=== PATIENT | female | born 1965 | race Caucasian/White ===

== ENCOUNTER 2022-09-26 15:23 | Outpatient (RCR) | payer BC, SELFPAY | END 2022-12-27 09:20 | disposition home or self-care (01) | PROVIDERS: PCP Family Medicine; Visit Provider Family Medicine | DX: M25.551 Pain in right hip (principal); M62.81 Muscle weakness (generalized); Z51.89 Encounter for other specified aftercare | CPT/HCPCS: 97110; 97161 ==

== ENCOUNTER 2023-02-18 09:35 | Outpatient (CLI) | payer BC, SELFPAY ==
[2023-02-20 03:21] LABS: Bacterial Vaginosis by TMA Negative; Candida glabrata by TMA Negative; Candida species by TMA Negative; Trichomonas vaginalis by TMA Negative
== END 2023-02-18 09:36 | disposition home or self-care (01) ==
LOC: NFLDREF 09:41
PROVIDERS: PCP Family Medicine; Visit Provider Physician Assistant
DX: N89.8 Other specified noninflammatory disorders of vagina (principal); R30.0 Dysuria
CPT/HCPCS: 81513; 87481; 87661

== ENCOUNTER 2024-04-27 14:01 | Outpatient (RCR) | payer BC, SELFPAY | END 2024-08-25 23:59 | disposition home or self-care (01) | PROVIDERS: PCP Family Medicine; Visit Provider Family Medicine | DX: M25.551 Pain in right hip (principal); Z51.89 Encounter for other specified aftercare | CPT/HCPCS: 97110; 97161 ==

== ENCOUNTER 2024-06-14 14:48 | Outpatient (CLI) | payer BC, SELFPAY ==
--- NOTE | 2024-06-14 14:45 | MR_ITS ---
EXAM: MRI of the RIGHT HIP, without contrast CLINICAL HISTORY: Ongoing right hip pain. Evaluate for arthritis, stress fracture, and labral tear. COMPARISONS: Plain radiographs 04/07/2024 and 08/15/2022. TECHNICAL: MR sequences of the right hip: Axials: PD FS Axial oblique: PD Coronals: PD, T2 Coronal pelvis: T1 and STIR Sagittals: PD and T2 CONTRAST: None SEDATION: None FINDINGS: Pelvis osseous structures: Sacrum: No fracture or destructive osseous lesion is seen of the imaged portions of the sacrum. Sacroiliac joints: No convincing evidence of sacroiliitis of the imaged portions of the sacroiliac joints. Pubic rami: Unremarkable. Symphysis pubis: There is no evidence of acute osteitis pubis. Labrum: Attenuation and ill-definition of the right hip labrum from the 1 o'clock position anterosuperiorly through 3 o'clock position anteriorly are findings consistent with fraying and ill-defined labral tearing. Hip joint: Moderate right hip joint effusion. Substantial right hip osteoarthritic changes include extensive full-thickness chondral loss over the superior portion of the acetabulum measuring approximately 2.5 cm in AP dimension by 1.0 cm in transverse dimension with subjacent subchondral cystic changes and grade III chondromalacia over the superior portion of the femoral head. Proximal femur: No fracture, osseous stress injury, avascular necrosis, or suspicious bone marrow signal abnormality is seen. The right femoral alpha angle measures 67 degrees at the 12 o'clock position superiorly measured on coronal series 5 image 15. Acetabulum: Coverage: Right lateral center edge (CE) angle measures approximately 30? correcting for coronal pelvic tilt, midline coronal series 5 image 15. Ligamentum teres: Attenuation and ill-definition likely reflect chronic attritional partial tearing. Myotendinous structures: Gluteus abductors: The gluteus minimus and medius tendons are unremarkable. Rectus abdominis-adductor longus aponeurosis, adductors, and rectus abdominis: Unremarkable. Hamstrings: Low-grade partial tearing of the right conjoined hamstring tendon at the ischial tuberosity attachment. The right semimembranosus tendon is unremarkable. Flexors: The iliopsoas and rectus femoris tendons are intact. Quadratus femoris muscle: Unremarkable. Piriformis muscle: Unremarkable. Gluteal aponeurotic fascia and IT band: Unremarkable. Pelvic soft tissues: There is colonic diverticulosis without evidence of diverticulitis. IMPRESSION: 1. Substantial right hip osteoarthritis with a 2.5 x 1.0 cm area of full- thickness chondral loss over the superior portion of the acetabulum, subjacent subchondral cystic changes, and grade III chondromalacia over the superior portion of the femoral head. Attenuation and ill-definition of the right hip labrum from the 1 o'clock position anterosuperiorly through 3 o'clock position anteriorly are findings consistent with fraying and ill-defined labral tearing. 2. Right femoral cam morphology. 3. Moderate right hip joint effusion. 4. Attenuation and ill-definition of the right hip ligamentum teres are findings consistent with chronic attritional partial tearing. 5. Low-grade partial tearing of the right conjoined hamstring tendon at the ischial tuberosity attachment, of uncertain/doubtful clinical significance. 6. Colonic diverticulosis without evidence of diverticulitis. 7. No fracture or osseous stress injury of the right hip. RCB Electronically signed on 06/15/2024 9:02:00 AM by Gera Alegria M.D.
== END 2024-06-14 14:49 | disposition home or self-care (01) ==
LOC: MRI 14:49
PROVIDERS: PCP Family Medicine; Visit Provider Orthopaedic Surgery
DX: M25.551 Pain in right hip (principal); M16.11 Unilateral primary osteoarthritis, right hip; M94.251 Chondromalacia, right hip; M25.451 Effusion, right hip; S76.011A Strain of muscle, fascia and tendon of right hip, initial encounter; K57.30 Diverticulosis of large intestine without perforation or abscess without bleeding
CPT/HCPCS: 73721

== ENCOUNTER 2024-09-07 09:16 | Day surgery (SDC) | payer BC, SELFPAY ==
[2024-09-07] VITALS (21 sets, daily range): BP systolic 85–120; BP diastolic 40–86; PULSE 66–91; RESP 11–19; TEMP 36.1–36.7; O2SAT 90–100; BMI 43.4
[2024-09-07] MEDS: SODIUM CHLORIDE 0.9 % (FLUSH) 10 ML SYRINGE IVF (10:13)
[2024-09-07] MEDS: LACTATED RINGERS 1000 ML 1,000 ML 100 ML IV ×2 (10:13→13:08)
--- NOTE | 2024-09-07 10:58 | SUR.PREOP ---
TIME?OUT:?11:00 AM PT/RN/MDA?VERIFICATION?OF?SURGICAL?SITE,?PROCEDURE,?AND?CONSENT OBTAINED?PRIOR?TO?INVASIVE?PROCEDURE.
[2024-09-07] MEDS: CELECOXIB 200 MG CAPSULE PO (11:00)
[2024-09-07] MEDS: ACETAMINOPHEN 500 MG TABLET 1000 MG PO ×3 (11:00→23:46)
[2024-09-07] MEDS: MIDAZOLAM HCL 1 MG/ML inj IVP (11:00)
[2024-09-07] MEDS: OXYCODONE (CR) 10 MG TAB.ER.12H PO (11:00)
--- NOTE | 2024-09-07 11:08 | W.ANESCHARGE ---
Anesthesia Charges Start Date/Time Anesthesia Start Date: 09/07/24 Anesthesia Start Time: 11:41 Stop Date/Time Anesthesia Stop Date: 09/07/24 Anesthesia Stop Time: 14:27 Coding CPT Codes CPT Codes: ANESTH HIP ARTHROPLASTY - 51176 ([id number]) P3 - PATIENT W/SEVERE SYS DISEASE, QK - COW BUYER 2-4 CNCRNT ANES PROC, QX - CIRCULATION ANALYST SVC W/ MD MED DIRECTION
--- NOTE | 2024-09-07 11:08 | P.ANES_ITS ---
Anesthesia Charges Start Date/Time Anesthesia Start Date: 09/07/24 Anesthesia Start Time: 11:41 Stop Date/Time Anesthesia Stop Date: 09/07/24 Anesthesia Stop Time: 14:27 Coding CPT Codes CPT Codes: ANESTH HIP ARTHROPLASTY - 09886 ([id number]) P3 - PATIENT W/SEVERE SYS DISEASE, QK - DAYCARE TEACHER 2-4 CNCRNT ANES PROC, QX - HOUSE MOTHER SVC W/ MD MED DIRECTION
--- NOTE | 2024-09-07 11:08 | W.PM.NB ---
Nerve Block Nerve Block Time Seen by Provider: 11:05 Date Seen: 09/07/24 Type of block requested by surgeon for post-operative analgesia: JAVY/LFCN Side: right Time out performed: Yes Verification of patient name: Yes Verification of date of : Yes Site marking: site marked Name of person performing procedure: Emeka Continuous monitoring Was continuous monitoring of O2 sat, B/P, monitoring coordinator, recorded every 15 minutes?: Yes Procedure Checklist: sterile prep, needles and gloves Ultrasound guided. Images saved: Yes Medications given in 5ml increments after negative aspiration: Ropivicaine %: 0.5 mL: 30 Needle gauge: 20 Precedex (mcg): 25 Patient tolerated procedure well: Yes Additional comments: Needle noted below psoas tendon needle noted adjacent to LFCN Block Charges Block Charge (with Pro Fee): Other Periph Nerve Block Use of Ultrasound Machine for Block: Yes- US Guidance/pain block
--- NOTE | 2024-09-07 11:30 | CRLHL7_ITS ---
For Patients: As a result of the Cures Act, medical imaging exams and procedure reports are released immediately into your electronic medical record. You may view this report before your referring provider. If you have questions, please contact your health care provider. Indication: Hip replacement surgery Technique: AP hip fluoroscopic images. Fluoroscopy time 84.6 seconds. Findings/Impression: Hardware from a right total hip arthroplasty is in satisfactory position. Dictated by Yash Edwards MD @ 09/09/2024 10:40:49 AM (Electronically Signed)
[2024-09-07] MEDS: TRANEXAMIC ACID 100 MG/ML INJ 1000 MG IV (12:15)
--- NOTE | 2024-09-07 13:42 | CRLHL7_ITS ---
For Patients: As a result of the Cures Act, medical imaging exams and procedure reports are released immediately into your electronic medical record. You may view this report before your referring provider. If you have questions, please contact your health care provider. Indication: Right Total Hip Arthroplasty Technique: AP hip centered pelvis and lateral view right hip Findings/Impression: Hardware from a right total hip arthroplasty is in satisfactory position. Bone alignment is normal. No sign of acute fracture. Postop changes are within normal limits. Dictated by Yash Edwards MD @ 09/08/2024 8:02:38 AM (Electronically Signed)
--- NOTE | 2024-09-07 14:03 | PM.ORPRC ---
Procedure Note Date of procedure: 09/07/24 Procedure: PREOPERATIVE DIAGNOSIS: Right hip osteoarthritis POSTOPERATIVE DIAGNOSIS: Right hip osteoarthritis NAME OF OPERATION: Right total hip arthroplasty SURGEON: Gunner Ramon MD AIRCRAFT MACHINIST HELPER: Carine Lopez PA-C, MAGGIE Beal IMPLANTS: 1. [employer] [place] #52 sector ingrowth cup 2. 36 x 52 +4 neutral polyethylene 3. Actis #3 high offset collared ingrowth stem 4. 36 -2 ceramic femoral head ANESTHESIA: General ESTIMATED BLOOD LOSS: 950 cc COMPLICATIONS: None SPECIMENS: None DRAINS: None PREOPERATIVE ANTIBIOTICS: Ancef 3 grams INDICATIONS: The patient is a 58-year-old with a longstanding history of severe, unrelenting right hip pain secondary to end-stage right hip osteoarthritis. Despite appropriate nonoperative management, including activity modification, use of an assist device, anti-inflammatories, [id number] pain medication, physical therapy and injections, they continue to have pain and disability. Operative intervention was offered. The risks, benefits and expected outcomes were discussed in detail. These included but were not limited to: Infection, bleeding, injury to blood vessel or nerve, venous thromboembolism. All questions were answered to their satisfaction. Use of an aquatics assistant department head was necessary throughout the case for patient positioning and safety, soft tissue retraction and closure. A modifier 22 should be added to this case patient weighs 126 kg with a BMI of 43. Because of this the dissection was difficult. The soft tissue envelope was 60 mm deep. These factors doubled the time typically required to complete the case. PROCEDURE: The patient was placed supine on the [place] table. General anesthesia was administered. The aquatics assistant department head made sure the patient was properly positioned. The right hip was prepped and draped in the usual sterile fashion. The image intensifier was brought in for a perfect AP pelvis and a perfect double tear drop AP view of each hip which were used for intraoperative templating with our fluoroscopic guide. An oblique incision was made 3 cm distal and 3 cm lateral to the anterior superior iliac spine. The aquatics assistant department head retracted the soft tissues to protect them. Subcutaneous dissection was taken with electrocautery to the superficial fascia. The fascia was divided in line with the incision. Blunt dissection was carried medially to the tensor fascia breann and sartorius interval. Deep dissection was carried with electrocautery. The circumflex vessels were cauterized and divided. The capsule was exposed and then divided in a T-fashion, tagged with #1 FiberWire sutures. Retractors were placed in the joint, held by the aquatics assistant department head. The corkscrew was placed in the femoral head. The neck cut was made in the subcapital region. We made a second neck cut more distal. The napkin ring of bone was removed. The femoral head was removed intact. Acetabular retractors were placed, held by the aquatics assistant department head. The labrum was sharply debrided. The capsule was released. The 43 mm reamer was used to the true medial wall. We then enlarged in 2 mm increments using the image intensifier for our reamer placement. We impacted the cup which had excellent purchase. We placed the polyethylene. Attention was then turned to the proximal femur. The limb was placed in 140 degrees of external rotation, maximum extension and adduction. A significant amount of time was spent releasing the capsule to allow us to deliver the femur into the wound and complete the femoral side safely. Retractors were held by the aquatics assistant department head throughout the femoral preparation. The paperboard box maker and canal finder were used. Broaches were used to a stable size. The calcar reamer was used. Trial components were placed. The hip was reduced and was found to be stable with appropriate soft tissue tension. Length and offset had been nicely restored using the image intensifier and our fluoroscopic guide. Trial components were removed. The stem was impacted. We placed the femoral head. Again, the hip was reduced and was found to be stable with appropriate soft tissue tension. Length and offset had been nicely restored. The aquatics assistant department head did a three minute dilute Betadine solution soak. The aquatics assistant department head irrigated the wound with 3 liters of normal saline via pulse lavage. The aquatics assistant department head repaired the anterior capsule with a #1 Vicryl and our previously placed Ethibond sutures. The aquatics assistant department head closed the fascia over the tensor fascia breann with a #1 PDO Stratafix, subcutaneous tissues with 2-0 Vicryl, skin with a running 3-0 Stratafix and glue. A dry dressing was applied by the aquatics assistant department head. Sponge and needle counts were correct x 2. The patient tolerated the procedure well; there were no apparent complications. They were awakened and extubated in the operating room, sent to the Post-Anesthesia Care Unit in satisfactory condition. PLAN: 1. The patient will be mobilized with physical therapy, weight-bearing as tolerates 2. Xarelto x 5 days then aspirin x 30 days will be used for DVT prophylaxis 3. The patient will be discharged once medically appropriate
--- NOTE | 2024-09-07 14:40 | P.ANES_ITS ---
Anesthesia Charges Start Date/Time Anesthesia Start Date: 09/07/24 Anesthesia Start Time: 11:41 Stop Date/Time Anesthesia Stop Date: 09/07/24 Anesthesia Stop Time: 14:27 Coding CPT Codes CPT Codes: ANESTH HIP ARTHROPLASTY - 76750 ([id number]) P3 - PATIENT W/SEVERE SYS DISEASE, QK - SOFTWARE APPLICATIONS SPECIALIST 2-4 CNCRNT ANES PROC, QX - PANTS PRESSER AUTOMATIC SVC W/ MD MED DIRECTION
--- NOTE | 2024-09-07 14:40 | W.ANESCHARGE ---
Anesthesia Charges Start Date/Time Anesthesia Start Date: 09/07/24 Anesthesia Start Time: 11:41 Stop Date/Time Anesthesia Stop Date: 09/07/24 Anesthesia Stop Time: 14:27 Coding CPT Codes CPT Codes: ANESTH HIP ARTHROPLASTY - 70865 ([id number]) P3 - PATIENT W/SEVERE SYS DISEASE, QK - TIN PLATER 2-4 CNCRNT ANES PROC, QX - BUSINESS APPLICATIONS DEVELOPER SVC W/ MD MED DIRECTION
[2024-09-07] MEDS: LACTATED RINGERS 1000 ML 1,000 ML 75 ML IV (14:50)
[2024-09-07] MEDS: CEFAZOLIN 3 GM in 0.9 % SODIUM CHLORIDE Mini-bag 100 ML IVPB (19:51)
[2024-09-07] MEDS: SENNOSIDES 1 TAB TABLET 2 TAB PO (20:28)
--- NOTE | 2024-09-07 21:07 | P.IMCN_ITS ---
Date of Consult Consult date: 09/07/24 Requesting Physician: Orthopedics Primary Care Provider: Diya Villavicencio, Consult Narrative Reason for consult: perioperative medical comanagement Narrative: Yaneth Gilbert is a 58 year old female with past medical history significant for hypothyroidism, obesity, anxiety and depression who presented to the hospital for right total hip arthroplasty. Preop history and physical was reviewed and patient was deemed a good candidate for surgery. She is seen postoperatively and doing ok. She has had some hypotension, required epinepherine in PACU. She denies chest pain, shortness of breath, nausea or any other concerns. [facility] Medical History (Updated 09/07/24 @ 21:23 by Jessenia Reardon MD) Lymphedema ?I89.0 - Lymphedema, not elsewhere classified (ICD-10) Adjustment disorder with depressed mood ?F43.21 - Adjustment disorder with depressed mood (ICD-10) Vitamin D deficiency ?E55.9 - Vitamin D deficiency, unspecified (ICD-10) Hypothyroidism ?E03.9 - Hypothyroidism, unspecified (ICD-10) Anxiety ?F41.9 - Anxiety disorder, unspecified (ICD-10) Depression ?F32.A - Depression, unspecified (ICD-10) Surgical History H/O liposuction ?Z98.890 - Other specified postprocedural states (ICD-10) Hx of tonsillectomy ?Z90.89 - Acquired absence of other organs (ICD-10) History of bilateral breast reduction surgery ?Z98.890 - Other specified postprocedural states (ICD-10) Family History (Updated 02/18/23 @ 09:13 by Ananya Taveras PA-C) Mother Breast cancer, Onset Age: 40 Aunt Breast cancer Father High blood pressure Social History (Updated 02/18/23 @ 11:17 by Ananya Taveras PA-C) Narrative: 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 Bachelor's degree. . Light smoker. Alcohol use: 10 drinks per week What is your current living situation?: I presently have a place to live Problems where you live: no known problems Problems where you live details: na In the past 12 months, utilities in danger of being shut off: no In past 12 months, lack of transportation kept you from medical appts, meetings, work, or getting things needed for daily living: no In the past 12 mos, have been you worried that your food would run out before you had money to buy more?: never true In the past 12 mos, the food you bought just didn't last and you didn't have money to buy more?: never true Smoking Status: Former smoker Do you use any of these nicotine containing products: None How often do you have a drink containing alcohol: 2-3 times a week How often do you have six or more drinks on one occasion: Never AUDIT-C Alcohol total score: 3 Non-prescribed substance use: marijuana (any form) Non-prescribed substance use details: THC gummies Caffeine: Yes How often does anyone, including family, friends and others, physically hurt you : never How often does anyone, including family, friends and others, insult or talk down to you: never How often does anyone, including family, friends and others, threaten you with harm: never How often does anyone, including family, friends and others, scream or curse at you: never service: No Meds Home Medications and Allergies Home Medications ?Medication ?Instructions ?Recorded ?Confirmed ?Type tirzepatide (weight loss) 5 mg/0.5 5 mg subcut QWEEK 0 06/07/24 09/07/24 History mL subcutaneous pen injector (Zepbound) acetaminophen 500 mg capsule 500 - 1,000 mg (1 - 2 x 5 00 mg) PO 09/07/24 Rx Q6H PRN pain #100 caps aspirin 81 mg chewable tablet 81 mg PO BID for DVT pro phylaxis 09/07/24 Rx (Aspirin Childrens) 30 days #60 tabs escitalopram oxalate 10 mg tablet 10 mg PO DAILY 09/0709/07/24 History levothyroxine 50 mcg tablet 50 mcg PO QAM 09/07/2404/03 History oxycodone 5 mg tablet 2.5 - 5 mg (0.5 - 1 x 5 mg) PO 09/07/24 Rx Q4-6H PRN Pain #42 tabs rivaroxaban 10 mg tablet (Xarelto) 10 mg PO DAILY DVT prophylaxis 4 09/07/24 Rx days #4 tabs sennosides 8.6 mg tablet (Senna 17.2 mg (2 x 8.6 mg) P O BID PRN 09/07/24 Rx Lax) constipation #100 tabs Allergies Allergy/AdvReac Type Severity Reaction Status Date / Time No Known Drug Allergies Allergy Verified 08/23/24 10:09 Exam Const: Vital Signs, click to edit/add: Vital Signs - 24 hr 09/07/24 10:10 09/07/24 11:00 09/07/24 14:27 Temperature 98.0 F 97.8 F Pulse Rate 75 66 91 Pulse Rate [Left P ulse Oximeter] Respiratory Rate 14 14 11 L Blood Pressure 117/86 116/78 110/40 L Blood Pressure [Ri ght Arm] Pulse Oximetry 95 93 90 Oxygen Delivery Me thod Room Air Nasal Cannula OxyMask Oxygen Flow Rate 2 12 09/07/24 14:30 09/07/24 14:35 09/07/24 14:40 Temperature Pulse Rate 88 83 81 Pulse Rate [Left P ulse Oximeter] Respiratory Rate 15 19 15 Blood Pressure 97/63 110/74 95/61 Blood Pressure [Ri ght Arm] Pulse Oximetry 95 98 98 Oxygen Delivery Me thod Oxygen Flow Rate 10 09/07/24 14:45 09/07/24 14:50 09/07/24 14:55 Temperature Pulse Rate 86 79 82 Pulse Rate [Left P ulse Oximeter] Respiratory Rate 12 15 16 Blood Pressure 102/68 93/63 88/60 L Blood Pressure [Ri ght Arm] Pulse Oximetry 96 100 99 Oxygen Delivery Me thod Nasal Cannula Oxygen Flow Rate 5 09/07/24 15:00 09/07/24 15:05 09/07/24 15:10 Temperature 97.6 F Pulse Rate 78 73 75 Pulse Rate [Left P ulse Oximeter] Respiratory Rate 13 16 18 Blood Pressure 106/68 92/64 106/68 Blood Pressure [Ri ght Arm] Pulse Oximetry 98 99 99 Oxygen Delivery Me thod Room Air Oxygen Flow Rate 2 09/07/24 15:45 09/07/24 16:00 09/07/24 16:21 Temperature 97.0 F L 97.0 F L 97.0 F L Pulse Rate 85 78 75 Pulse Rate [Left P ulse Oximeter] Respiratory Rate 16 16 14 Blood Pressure 90/45 L 85/63 L 101/70 Blood Pressure [Ri ght Arm] Pulse Oximetry 93 94 93 Oxygen Delivery Me thod Room Air Oxygen Flow Rate 09/07/24 16:47 09/07/24 17:15 09/07/24 17:45 Temperature 97.3 F L Pulse Rate 77 89 72 Pulse Rate [Left P ulse Oximeter] Respiratory Rate 16 16 16 Blood Pressure 105/75 107/77 120/81 Blood Pressure [Ri ght Arm] Pulse Oximetry 92 92 91 Oxygen Delivery Me thod Room Air Oxygen Flow Rate 09/07/24 17:58 09/07/24 19:00 Temperature 96.9 F L Pulse Rate Pulse Rate [Left P ulse Oximeter] 89 Respiratory Rate 16 Blood Pressure 111/61 Blood Pressure [Ri ght Arm] 110/71 Pulse Oximetry 92 94 Oxygen Delivery Me thod Room Air Oxygen Flow Rate Assessment and Plan Assessment and plan (1) Osteoarthritis of right hip: Problem comment: POD #0 s/p right JANETT. Doing well, management per orthopedics Status: Acute (2) Hypothyroidism: Problem comment: Continue levothyroxine Status: Acute (3) Anxiety: Problem comment: Continue lexapro Status: Acute (4) Depression: Problem comment: Continue lexapro Status: Acute (5) Paroxysmal atrial fibrillation: Problem comment: Clinically appears to be in sinus rhythm. Holding Xarelto in the immediate postop period. Resume when ok per orthopedics Status: Acute
[2024-09-08] MEDS: CEFAZOLIN 3 GM in 0.9 % SODIUM CHLORIDE Mini-bag 100 ML IVPB (02:22)
[2024-09-08 02:27] VITALS: BP 102/60; PULSE 72; RESP 16; TEMP 36.1; O2SAT 93
--- NOTE | 2024-09-08 05:03 | PC.NURSE ---
Shift note: Patient is doing well ambulating with A1, walker and GB. She was fearful and feeling anxious initially to walk. Pain has been at 5 in most part of the shift and managed with Tylenol and Oxycodone. Dressing intact, clean and dry. Ice pack applied. Patient asked for sandwich, putin and apple juice at 2130. She tolerated diet well. No nausea or abdominal pain. No BM and pt denied passing gas. Vitally stable.
[2024-09-08] MEDS: LEVOTHYROXINE 50 MCG TABLET PO (06:29)
[2024-09-08] MEDS: ACETAMINOPHEN 500 MG TABLET 1000 MG PO (06:29)
[2024-09-08 07:53] VITALS: BP 121/68; PULSE 79; RESP 18; TEMP 36.2; O2SAT 94
[2024-09-08] MEDS: SENNOSIDES 1 TAB TABLET 2 TAB PO (07:55)
[2024-09-08] MEDS: RIVAROXABAN 10 MG TABLET PO (07:55)
[2024-09-08] MEDS: ESCITALOPRAM 10 MG TABLET PO (07:55)
--- NOTE | 2024-09-08 08:26 | PM.ORPN ---
Subjective Subjective Time Seen by Provider: 07:30 Date Seen: 09/08/24 Principal diagnosis: Status post left hip replacement Interval history: Aislinn is comfortable at rest. She will be discharging to home today. Ortho Exam Narrative Exam Narrative: Alert and oriented x3. Patient is in no acute distress. Converses without labored breathing. Hearing is grossly intact. Ambulates with a walker. Examination of the right hip shows dressing is in place and intact. No erythema or warmth or sign of infection. Very minimal edema. CMS intact right lower extremity. Calf is soft and nontender. Const Vital Signs, click to edit/add: Vital Signs - 24 hr 09/07/24 10:10 09/07/24 11:00 09/07/24 14:27 Temperature 98.0 F 97.8 F Pulse Rate 75 66 91 Pulse Rate [Left Pulse Oximeter] Respiratory Rate 14 14 11 L Blood Pressure 117/86 116/78 110/40 L Blood Pressure [Right Arm] Pulse Oximetry 95 93 90 Oxygen Delivery Method Room Air Nasal Cannula OxyMask Oxygen Flow Rate 2 12 09/07/24 14:30 09/07/24 14:35 09/07/24 14:40 Temperature Pulse Rate 88 83 81 Pulse Rate [Left Pulse Oximeter] Respiratory Rate 15 19 15 Blood Pressure 97/63 110/74 95/61 Blood Pressure [Right Arm] Pulse Oximetry 95 98 98 Oxygen Delivery Method Oxygen Flow Rate 10 09/07/24 14:45 09/07/24 14:50 09/07/24 14:55 Temperature Pulse Rate 86 79 82 Pulse Rate [Left Pulse Oximeter] Respiratory Rate 12 15 16 Blood Pressure 102/68 93/63 88/60 L Blood Pressure [Right Arm] Pulse Oximetry 96 100 99 Oxygen Delivery Method Nasal Cannula Oxygen Flow Rate 5 09/07/24 15:00 09/07/24 15:05 09/07/24 15:10 Temperature 97.6 F Pulse Rate 78 73 75 Pulse Rate [Left Pulse Oximeter] Respiratory Rate 13 16 18 Blood Pressure 106/68 92/64 106/68 Blood Pressure [Right Arm] Pulse Oximetry 98 99 99 Oxygen Delivery Method Room Air Oxygen Flow Rate 2 09/07/24 15:45 09/07/24 16:00 09/07/24 16:21 Temperature 97.0 F L 97.0 F L 97.0 F L Pulse Rate 85 78 75 Pulse Rate [Left Pulse Oximeter] Respiratory Rate 16 16 14 Blood Pressure 90/45 L 85/63 L 101/70 Blood Pressure [Right Arm] Pulse Oximetry 93 94 93 Oxygen Delivery Method Room Air Oxygen Flow Rate 09/07/24 16:47 09/07/24 17:15 09/07/24 17:45 Temperature 97.3 F L Pulse Rate 77 89 72 Pulse Rate [Left Pulse Oximeter] Respiratory Rate 16 16 16 Blood Pressure 105/75 107/77 120/81 Blood Pressure [Right Arm] Pulse Oximetry 92 92 91 Oxygen Delivery Method Room Air Oxygen Flow Rate 09/07/24 17:58 09/07/24 19:00 09/07/24 23:00 Temperature 96.9 F L Pulse Rate Pulse Rate [Left Pulse Oximeter] 89 Respiratory Rate 16 16 Blood Pressure 111/61 Blood Pressure [Right Arm] 110/71 Pulse Oximetry 92 94 92 Oxygen Delivery Method Room Air Room Air Oxygen Flow Rate 09/07/24 23:00 09/08/24 02:27 09/08/24 07:53 Temperature 97 F L 96.9 F L Pulse Rate Pulse Rate [Left Pulse Oximeter] 90 72 Respiratory Rate 16 16 18 Blood Pressure Blood Pressure [Right Arm] 116/70 102/60 Pulse Oximetry 92 93 94 Oxygen Delivery Method Room Air Room Air Room Air Oxygen Flow Rate 09/08/24 07:53 Temperature 97.2 F L Pulse Rate Pulse Rate [Left Pulse Oximeter] 79 Respiratory Rate 18 Blood Pressure Blood Pressure [Right Arm] 121/68 Pulse Oximetry 94 Oxygen Delivery Method Room Air Oxygen Flow Rate Assessment and Plan Assessment and plan (1) Status post right hip replacement: Problem details: 09/07/2024, Dr. Ramon Status: Acute Assessment and Plan: Plan for discharge is today, and when they meets discharge criteria. DVT prophylaxis upon discharge [includes Xarelto 10mg daily for a total of 5 days, then Aspirin 81mg twice daily for 30 days]. Remove dressing 1 week. Observe wound and phone Orthopedics with any questions or concerns Use Ice on operative hip unrestricted. Return to clinic in 7-10 days for a wound check Return to clinic in 6 weeks with surgeon Minimize narcotic use. Wean off and discontinue soon as possible. Activities as tolerated. No strenuous activity. Attend outpt PT
[2024-09-08 10:38] LABS: Hemoglobin* 11.9 gm/dL (12.0-16.0)
== END 2024-09-08 11:21 | disposition home or self-care (01) ==
LOC: OR 09:19 → MEDSURG 10:50
PROVIDERS: Physician Assistant; PCP Family Medicine; Visit Provider Orthopaedic Surgery
PROC: (CPT 27130; principal; 2024-09-07 11:30)
DX: M16.11 Unilateral primary osteoarthritis, right hip (principal); G89.18 Other acute postprocedural pain; Z68.41 Body mass index [BMI] 40.0-44.9, adult; E66.9 Obesity, unspecified; I48.0 Paroxysmal atrial fibrillation; I95.9 Hypotension, unspecified; Z79.01 Long term (current) use of anticoagulants; Z79.82 Long term (current) use of aspirin; Z79.85 Long-term (current) use of injectable non-insulin antidiabetic drugs; F41.9 Anxiety disorder, unspecified; F32.A Depression, unspecified; E03.9 Hypothyroidism, unspecified; E55.9 Vitamin D deficiency, unspecified
CPT/HCPCS: 27130; 01214; 36415; 64450; 73501; 76000; 76942; 85018; 86850; 86900; 86901; 97110; 97116; 97161; 97165; 97530; 97535; A9270; C1776; J0330; J0690; J1100; J1171; J2250; J2405; J2704; J3010; J3490; J7030; J7120

== ENCOUNTER 2024-10-05 13:00 | Outpatient (RCR) | payer BC, SELFPAY | END 2025-02-02 23:59 | disposition home or self-care (01) | PROVIDERS: PCP Family Medicine; Visit Provider Orthopaedic Surgery | DX: Z47.1 Aftercare following joint replacement surgery (principal); Z96.641 Presence of right artificial hip joint; Z51.89 Encounter for other specified aftercare | CPT/HCPCS: 97110; 97140; 97161 ==

== ENCOUNTER 2024-10-22 09:41 | Emergency (ER) | payer BC, SELFPAY ==
[2024-10-22 09:47] VITALS: BP 109/80; PULSE 99; RESP 20; TEMP 36.4; O2SAT 97; BMI 42.1
--- OUTSIDE RECORDS SUMMARY | 2024-10-22 09:47 | XMS_ITS | Clinical Summary ---
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 0 2 Active escitalopram oxalate (LEXAPRO) 10 mg tabletIndication s:Hot flashes Take 1 Tablet (10 mg) by mouth once daily. 90 Tablet 3 4 Active tirzepatide, weight loss, (ZEPBOUND) 5 mg/0.5 mL subcutaneous vialIndications: Class 3 severe obesity with body mass index (BMI) of 40.0 to 44.9 in adult, unspecified obesity type, unspecified whether serious comorbidity present (HC) Inject 0.5 mL (5 mg) subcutaneous once weekly. Patient phone number [phone] email [email or web address] m 4 Each 11 5 Active levothyroxine 50 mcg tabletIndication s:Hypothyroidism (acquired),Bon Wier juan TSH TAKE 1 TABLET (50 MCG) BY MOUTH BEFORE BREAKFAST 90 Tablet 5 Active Active Problems Problem Noted Date Diagnosed Date Lymphedema 05/07/2018 ASCUS of cervix with negative high risk HPV 10/2017 Overview (09/12/2020): 11/2012 ASCUS/HPV negative 01/2014 ASCUS/HPV negative 03/2017 ASCUS/HPV negative 04/2018 NIL/HPV negative 08/2020 NIL/HPV negative Plan: Routine screening Hypothyroidism 02/21/2016 Adjustment disorder with depressed mood 11/11/19 13 Elevated TSH 12/14/2011 Anxiety state, unspecified Vitamin D deficiency Edema Overview (11/10/2012): possibly lymphedema Resolved Problems Problem Noted Date Diagnosed Date Resolved Date Encounter for biopsy 05/16/2014 015 Encounters Date Type Department Care Team Description 10/22/2024 Nurse Triage [facility] [address] [place] [address] Diya Villavicencio DO Diarrhea 10/22/2024 Nurse Triage [facility] [address] [place] [address] Diya Villavicencio DO Diarrhea 10/22/2024 Telephone [facility] [address] [place] [address] Diya Villavicencio DO Error-please disregard 10/20/2024 Refill [facility] [address] [place] [address] Diya Villavicencio DO Refill Request (Escitalopram Oxalate, Levothyroxine) 09/07/2024 Orders Only [facility] Scanner 1 scan: (1-Ord) [facility], HIP RT 1 VIEW, 09/07/2024 09/07/2024 Orders Only [facility] Scanner 1 scan: (1-Ord) [facility], HIP RT POST OP, 09/07/2024 08/19/2024 11:40 AM CDT Office Visit [facility] [address] [place] [address] Diya Villavicencio DO Pre-Op Exam (Right hip 09/07/[address] [facility] [address] Ramon [id number]) 08/18/2024 Travel from Last 3 Months Immunizations Immunization Administration Dates Next Due COVID-19 vaccine (Moderna 100mcg/0.5mL) KIARA GREENE 06/26/2020,05/29/2020 COVID-19 vaccine (GoodzerBio NTech 30mcg/0.3mL) 12YO+ NIESHA-SUCROSE PF, MDV 04/16/2021 Influenza, IIV4 01/03/2020, 0,02/21/2016,2013 Tdap 01/12/2015 Zoster (Shingrix-RZV, recombinant) 12/12/2020, Family History Medical History Relation Name Comments Hypertension Father Cancer-breast Maternal Aunt Cancer-breast Mother Good Health Sister Cancer-ovarian No Family History Relation Name Status Comments Father Maternal Aunt Mother Sister Social History Tobacco Use Types Packs/Day Years Used Date Smoking Tobacco: Former Cigarettes Q uit: 2006 Passive Smoke Exposure: Never Smokeless Tobacco: Never Tobacco Cessation:Counseling Given: Not Answered Alcohol Use Standard Drinks/Week Comments Not Currently 0 (1 standard drink = 0.6 oz pur e alcohol) PHQ-2 Answer Date Recorded PHQ-2 TOTAL SCORE 0 12/02/2023 Social Connections Answer Date Recorded Do you often feel lonely or isolated from those around you? 0 11/04/2023 Alcohol Use Answer Date Recorded How often do you have a drink containing alcohol ? 4 04/16/2021 How many drinks containing a lcohol do you have on a typical day when you are drinking? 0 04/16/2021 How often do you have five or more drinks on one occasion? 0 04/16/2021 Financial Resource Strain Answer Date R ecorded Difficulty of Paying Living Expenses 3 11/04/2023 Difficulty of Paying Living Expenses Not on file 11/04/2023 Food Insecurity Answer Date Recorded Do you worry your food will run out before you are able to buy more? 1 11/04/2023 Transportation Needs Answer Date Record ed Does lack of transportation keep you from medica l appointments? 1 11/04/2023 Does lack of transportation keep you from work, meetings or getting things that you need? 1 11/04/2023 Housing Stability Answer Date Recorded What is your housing situation today? 1 11/04/2023 Utilities Answer Date Recorded Do you have trouble paying f or utilities (for example, heat, electricity, water, phone)? 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 Not on file Not on file Obstetrics History Para Term AB IAB SAB Ectopic Multiple Livin g Live Births 2 2 2 0 Date Outcome GA Total Labor Labor/2nd/3rd Weight Sex Type Anes PTL Cathleen A1 A5 Name Clin IAB IAB Last Filed Vital Signs Vital Sign Reading Time Taken Comments Blood Pressure 125/87 08/19/2024 11:55 AM CDT Pulse 80 08/19/2024 11:55 AM CDT Temperature 36.7 C (98 F) 05/04/2024 10:32 AM PROPOSAL MANAGER Respiratory Rate - - Oxygen Saturation 96% 08/19/2024 11: 55 AM CDT Inhaled Oxygen Concentration - - Weight 125.7 kg (277 lb 3.2 oz) 025 11:55 AM CDT Height 170.8 cm (5' 7.25) 08/19/2024 1 1:55 AM CDT Body Mass Index 43.09 08/19/2024 11:55 AM CDT Plan of Treatment Health Maintenance Due Date Last Done Comments Hepatitis B series for 19+ ( 1 of 3 - 19+ 3-dose series) 11/09/1983 Pneumococcal series for age 50+ (1 of 1 - PCV) 2014 COVID-19 vaccine series ( season) 2023 04/16/2021, 06/26/2020, 05/29/2020 Mammogram for age 45-75 10/13/2024 10/14/19 24, 03/01/2022, 05/24/2020, Additional history exists Influenza Vaccine (#1) 2024 , 03/15/2019, 02/21/2016, Additional history exists Depression screening for age 12+ 12/01/2024 12/02/2023, 08/25/2023, 08/25/2023, Additional history exists Tetanus booster 01/12/2025 01/12/2015 BMI (ht and wt on same day) for age 18+ 08/19/2025 08/19/2024, 11/04/2023, 10/03/2022, Additional history exists Pap test for age 21-65 08/29/2025 , 08/29/2020, 05/07/2018, Additional history exists Colonoscopy through age 75 03/26/2026 03/26/2016, Lipids for age 45-75 09/17/2027 09/16/2022, 03/15/2019, 02/25/2018, Additional history exists Hepatitis C screening for ag e 18-79 Completed 03/12/2017 Zoster (shingles) series for age 50+ Completed 12/12/2020, 08/29/2020 HIV for age 15-65 Completed 10/03/2022 Procedures Procedure Name Priority Date/Time Associated Diagnosis Comments SCAN-RADIOLOGY REPORT 09/07/2024 12:00 AM CDT SCAN-RADIOLOGY REPORT 09/07/2024 12:00 AM CDT HEMOGLOBIN Routine 08/19/2024 12:42 PM CDT Pre-op exam XR MAMMO NATALEE BILAT SCREEN Routine 10/14/2023 1:16 PM CDT Routine adult health maintenance LC HIV-1/O/2, 4TH GENERATION Routine 10/03/2022 3:30 PM CDT Screening for HIV (human immunodeficiency virus) LIPID PANEL W REFLEX MEASURED LDL Routine 09/16/2022 9:41 AM CDT Hypothyroidism (acquired) TAX DIRECTOR THIN PREP PAP SCREEN IMAGED Routine 08/29/2020 2:00 PM CDT Cervical cancer screening ANTI HCV Routine 03/12/2017 12:46 PM PROPOSAL MANAGER Need for hepatitis C screening test COLONOSCOPY 03/26/2016 9:34 AM PROPOSAL MANAGER from Last 3 Months or Most Recently Relevant to Health Maintenance Results * SCAN-RADIOLOGY REPORT (09/07/2024 12:00 AM CDT) Only the most recent of2 resultswithin the time period is included. Anatomical Region Laterality Modality Other us Scanner OTHER Final Result * HEMOGLOBIN (08/19/2024 12:42 PM CDT) HEMOGLOBIN 14.0 11.7 - 15.5 g/dL [facility] Blood BLOOD SPECIMEN / Unknown 08/19/2024 12:42 PM CDT 08/19/2024 12:43 PM CDT Diya Hood Lidiayamilex DO HEMATOLOGY Final Resu lt [facility] [address] [place] [address], [facility] [address] [place] [address] * XR MAMMO NATALEE BILAT SCREEN (10/14/2023 1:16 PM CDT) Anatomical Region Laterality Modality BREASTS, Breast Left, Breast Right Bilateral Mammography Impressions 10/14/2023 4:26 PM CDT There is no radiographic evidence for malignancy. Recommend annual mammograms. MAMMOGRAM ASSESSMENT: ACR 1 Negative PATIENTS: You will also receive a letter with your examination results in an easy to read format. If you have questions about your results, please contact your referring provider. Narrative 10/14/2023 4:26 PM CDT For Patients: As a result of the Century Cures Act, medical imaging exams and procedure reports are released immediately into your electronic medical record. You may view this report before your referring provider. If you have questions, please contact your health care provider. XR MAMMO NATALEE BILAT SCREEN [[id number]] CLINICAL HISTORY: This is an asymptomatic 57 y.o. patient. INDICATION FOR EXAM: Mammogram Screening. TECHNIQUE: CC & MLO views were obtained. This study was evaluated with the assistance of Computer-Aided Detection. Breast Tomosynthesis was used in interpretation. COMPARISON FILM: Yes 03/01/22 [employer] 05/24/20 [facility] [employer] FINDINGS: There are scattered areas of fibroglandular density. There are no dominant masses, suspicious micro calcifications or areas of architectural distortion. Diya Villavicencio DO MAMMO Final Resu lt * LC HIV-1/O/2, 4TH GENERATION (10/03/2022 3:30 PM CDT) Pathologist [facility] HIV Scr 4th Gen Non Reactive Non Reactive 10/08/2022 10:06 PM CDT [facility] ([facility]) Comment: HIV Negative HIV-1/HIV-2 antibodies and HIV-1 p24 antigen were NOT detected. There is no laboratory evidence of HIV infection. Blood BLOOD SPECIMEN / Unknown Venipuncture / Unknown 10/03/2022 3:30 PM CDT 10/03/2022 3:31 PM CDT Narrative [facility] ([facility]) - 10/08/2022 10:06 PM CDT Performed at: [address] [place] [id number] Escort Service Attendant: Lisandro Tsai MD, Phone: [phone] Diya Villavicencio DO LABORATORY Final Resu lt [facility] ([facility]) [address] [place] [id number], * (ABNORMAL) LIPID PANEL W REFLEX MEASURED LDL (09/16/2022 9:41 AM CDT) Pathologist [facility] CHOLESTEROL,TOTAL 205(H) 100 - 199 mg/dL 09/16/2022 6:05 PM CDT [facility] Comment: Cholesterol, Total Reference Ranges Desirable <200 mg/dL Borderline 200-239 mg/dL High >=240 mg/dL TRIGLYCERIDES 108 <150 mg/dL 09/16/2022 6:05 PM CDT [facility] HDL CHOLESTEROL 40(L) >40 mg/dL 6:05 PM CDT [facility] NON-HDL CHOLESTEROL 165(H) <145 mg/dl 09/16/2022 6:05 PM CDT [facility] CHOL/HDL RATIO 5.13(H) <4.50 09/16/2022 6:05 PM CDT [facility] LDL CHOLESTEROL 143(H) <=130 mg/dL 09/16/2022 6:05 PM CDT [facility] VLDL CHOLESTEROL 22 <=30 mg/dL 09/16/2022 6:05 PM CDT [facility] PROVIDER ORDERED STATUS RANDOM 09/16/2022 6:05 PM CDT [facility] Blood BLOOD SPECIMEN / Unknown Venipuncture / Unknown 09/16/2022 9:41 AM CDT 09/16/2022 9:43 AM CDT Diya Villavicencio DO CHEMISTRY Final Resu lt [facility] [address] [place] [address], [place] * TAX DIRECTOR THIN PREP PAP SCREEN IMAGED (08/29/2020 2:00 PM CDT) Case Report Gynecologic Cytology Report Case: [id number] Authorizing Provider: Diya Villavicencio DO Collected: 08/29/2020 1400 Ordering Location: [facility] Received: 08/29/2020 1443 Clinic First Screen: Jory Sandoval Rescreen: Brandon Campo Pathologist: Melissa Dillon MD Specimen: TAX DIRECTOR ThinPrep Vial Screening, Cervical 09/08/2020 3:04 PM CDT [facility] INTERPRETATION/ RESULT NEGATIVE FOR INTRAEPITHELIAL LESION OR MALIGNANCY (NIL) (none) 09/08/2020 3:04 PM CDT [facility] at 1504 CDT OTHER NON-NEOPLASTIC FINDING(S) Reactive cellular changes associated with inflammation/repa ir 09/08/2020 3:04 PM CDT [facility] SPECIMEN ADEQUACY Satisfactory for evaluation Endocervical component present 09/08/2020 3:04 PM CDT [facility] HPV REQUEST HPV and PAP 09/08/2020 3:04 PM CDT [facility] Date of LMP 2017 09/08/2020 3:04 PM CDT [facility] Last Pap Date 05/07/18 09/08/2020 3:04 PM CDT [facility] Last Pap Result NIL 3:04 PM CDT [facility] Abnormal Pap or [place] Bx in last 5 years Yes 09/08/2020 3:04 PM CDT [facility] Menstrual Status Postmenopausal 09/08/2020 3:04 PM CDT [facility] [place] Bx Done Today No 09/08/2020 3:04 PM CDT [facility] Additional Information +Ascus negative HPV 2018 09/08/2020 3:04 PM CDT [facility] Comment: Cytology is screened at [facility] - [address], [place] [address] and [facility] - [address] [place] [address] and [facility] - [address] [facility] [place] [address] Interpreted at [facility] - [address], [place] [address] Automated Review Successful 09/08/2020 3:04 PM CDT [facility] Comment:Specimen processed s uccessfully by automated bailiff device, ThinPrep Imaging System, [employer] ANCILLARY TESTING TAX DIRECTOR HPV Ordered, Please see separate report 09/08/2020 3:04 PM CDT [facility] Note The pap test is a screening technique, not a diagnostic procedure. It is used primarily to screen for squamous cancers and precursor lesions. Published studies have shown that it is subject to both false negative and false positive results. The pap test should not be used as the sole means to diagnose or exclude pre-malignant and malignant lesions. 09/08/2020 3:04 PM CDT [facility] Other (Cervical) Non-Blood / Unknown 08/29/2020 2:00 PM CDT 08/29/2020 2:43 PM CDT Diya Villavicencio DO PATHOLOGY/CYTOLOGY Final R esult [facility] [address] [place] [address], [place] * ANTI HCV [[id number]] (03/12/2017 12:46 PM PROPOSAL MANAGER) HEPATITIS C ANTIBODY Non-Reacti ve Non-Reacti ve 03/12/2017 8:29 PM PROPOSAL MANAGER [facility] Blood BLOOD SPECIMEN / Unknown Venipuncture / Unknown 03/12/2017 12:46 PM PROPOSAL MANAGER 03/12/2017 12:46 PM PROPOSAL MANAGER Narrative [facility] - 03/12/2017 8:29 PM PROPOSAL MANAGER Antibodies to HCV not detected; does not exclude the possibility of exposure to HCV. Diya Villavicencio DO SEND OUTS Final Resu lt Performing Organization Address City/[facility]/ZIP Co de Phone Number [facility] [address] [place] [address], [place] * COLONOSCOPY (03/26/2016 9:34 AM PROPOSAL MANAGER) 03/26/2016 9:34 AM PROPOSAL MANAGER Narrative Transcriptions Cody Mckinley MD - 04/29/2016 4:34 PM CST Patient Name: Yaneth Gilbert Procedure Date: 03/26/2016 Gender: Female Date of : 1965 Admit Type: Outpatient Procedure: Colonoscopy Proceduralist: Cody Mckinley MD Referring MD: Diya Villavicencio Indications/Pre-Op Diagnosis: Screening for colorectal malignant neoplasm, This is the patient's first colonoscopy Medications: Fentanyl 100 micrograms IV, Midazolam 4 mgIV, The level of sedation administered wasmoderate Procedure Description: The patient had risks, benefits and alternatives explained to andgave informed consent. The patient had a stable cardiopulmonary status and judged an adequate candidate for conscious sedation. The [id number] was passed through the anus and advanced tothe cecum, identified by appendiceal orifice and ileocecal valve. The colonoscopy was performed without difficulty. The patient toleratedthe procedure well. The quality of the bowel preparation was excellent.The ileocecal valve, appendiceal orifice, and rectum were photographed. Moderate (conscious) sedation was administered by the endoscopist.The following parameters were monitored: oxygen saturation, heart rate, blood pressure, and response to care. Total physician intra-servicetime was 15 minutes. Please see endoscopy/nursing flowsheet and notes for moderate sedation information and documentation. Complications: No immediate complications. Estimated Blood Loss & Specimen: Estimated blood loss: none. Specimen collected - None Findings: The perianal and digital rectal examinations were normal. A few small-mouthed diverticula were found in the sigmoid colon. The exam was otherwise without abnormality on direct and retroflexion views. Impressions/Post-Op Diagnosis: - Diverticulosis in the sigmoid colon. - The examination was otherwise normal on direct and retroflexionviews. - No specimens collected. Recommendation: - Patient has a contact number available for emergencies. The signsand symptoms of potential delayed complications were discussed with the patient. Return to normal activities tomorrow. Written discharge instructions were provided to the patient. - Resume previous diet. - Continue present medications. - Repeat colonoscopy in 10 years for screening purposes. Cody Mckinley MD 03/26/2016 11:19:06 AM This report has been signed electronically. Note Initiated On: 03/26/2016 9:34 AM Procedure Code(s): --- Professional --- G0121, Colorectal cancer screening;colonoscopy on individual not meeting criteria for highrisk Diagnosis Code(s): --- Professional --- Z12.11, Encounter for screening formalignant neoplasm of colon K57.30, Diverticulosis of large intestine without perforation or abscess withoutbleeding CPT copyright 2015 [employer]. All rights reserved. The codes documented in this report are preliminary and upon public housing interviewer reviewmay be revised to meet current compliance requirements. Scope In: 11:02:16 AM Scope Withdrawal Time 0 hours 9 minutes 3 seconds Scope Out: 11:15:13 AM Cody Mckinley MD PROCEDURE ORD Edited Re sult - Final from Last 3 Months or Most Recently Relevant to Health Maintenance Insurance [facility] OF NON-ME-ITS Care Teams Senior Mechanical Estimator Relationship Specialty Start Date End Date Diya Villavicencio DO [address] [place] [address] PCP - General Family Practice 01/26/14
--- NOTE | 2024-10-22 10:12 | ED_ITS ---
HPI - General Adult General Chief complaint: Diarrhea Stated complaint: Abdominal pain, fever, dehydration Time Seen by Provider: 10/22/24 09:43 History of Present Illness HPI narrative: Patient is a 58-year-old female has had diarrhea for last couple of days, has been clear watery. She has had no lightheadedness or dizziness but feels dehydrated and weak. She still is able to eat but less so than normal. Is able to take some fluids. Has not been vomiting. Has felt ?urpy. Patient denies chest pain denies abdominal pain. She has felt some crampiness however. No leg swelling or edema. Patient has had frequent bowel movements as mention no recent travel. She did have a hip replacement about 7 weeks ago. That is doing well. Related Data Home Medications ?Medication ?Instructions ?Recorded ?Confirmed escitalopram oxalate 10 mg tablet 10 mg PO DAILY 09/0710/22/24 levothyroxine 50 mcg tablet 50 mcg PO QAM 09/07/24 oxycodone 5 mg tablet mg PO pain 10/22/24 Previous Rx's ?Medication ?Instructions ?Recorded acetaminophen 500 mg capsule 500 - 1,000 mg (1 - 2 x 5 00 mg) PO 09/07/24 Q6H PRN pain #100 caps aspirin 81 mg chewable tablet 81 mg PO BID for DVT pro phylaxis 09/07/24 (Aspirin Childrens) 30 days #60 tabs Allergies Allergy/AdvReac Type Severity Reaction Status Date / Time No Known Drug Allergies Allergy Verified 10/22/24 09:51 Review of Systems Status of ROS: Reports: 6 or more systems reviewed and unremarkable except as noted in History and below [facility] Medical History Lymphedema ?I89.0 - Lymphedema, not elsewhere classified (ICD-10) Adjustment disorder with depressed mood ?F43.21 - Adjustment disorder with depressed mood (ICD-10) Vitamin D deficiency ?E55.9 - Vitamin D deficiency, unspecified (ICD-10) Hypothyroidism ?E03.9 - Hypothyroidism, unspecified (ICD-10) Anxiety ?F41.9 - Anxiety disorder, unspecified (ICD-10) Depression ?F32.A - Depression, unspecified (ICD-10) Surgical History History of total right hip replacement (09/07/24) ?Z96.641 - Presence of right artificial hip joint (ICD-10) H/O liposuction ?Z98.890 - Other specified postprocedural states (ICD-10) Hx of tonsillectomy ?Z90.89 - Acquired absence of other organs (ICD-10) History of bilateral breast reduction surgery ?Z98.890 - Other specified postprocedural states (ICD-10) Family History Mother Breast cancer, Onset Age: 40 Aunt Breast cancer Father High blood pressure Social History Narrative: 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 Bachelor's degree. . Light smoker. Alcohol use: 10 drinks per week What is your current living situation?: I presently have a place to live Problems where you live: no known problems Problems where you live details: na In the past 12 months, utilities in danger of being shut off: no In past 12 months, lack of transportation kept you from medical appts, meetings, work, or getting things needed for daily living: no In the past 12 mos, have been you worried that your food would run out before you had money to buy more?: never true In the past 12 mos, the food you bought just didn't last and you didn't have money to buy more?: never true Smoking Status: Former smoker Do you use any of these nicotine containing products: None How often do you have a drink containing alcohol: 2-3 times a week How many standard drinks containing alcohol do you have on a typical day: 3 or 4 How often do you have six or more drinks on one occasion: Never AUDIT-C Alcohol total score: 4 Non-prescribed substance use: marijuana (any form) Non-prescribed substance use details: THC gummies Caffeine: Yes How often does anyone, including family, friends and others, physically hurt you : never How often does anyone, including family, friends and others, insult or talk down to you: never How often does anyone, including family, friends and others, threaten you with harm: never How often does anyone, including family, friends and others, scream or curse at you: never service: No Exam Narrative: Exam Narrative: Objective: In general patient is no apparent distress she is alert or x3 noncyanotic No scleral icterus Mouth shows some mild dryness of the tongue Neck is supple Pulses regular Abdomen obese benign nontender Extremities are no edema neurologic nonfocal good peripheral perfusion noted Const: Vital Signs, click to edit/add: Vital Signs - 24 hr 10/22/24 09:47 10/22/24 12:01 Temperature 97.5 F L Pulse Rate [Pulse Oximeter] 99 91 Respiratory Rate 20 18 [facility] 109/80 116/74 Pulse Oximetry 97 Oxygen Delivery Me thod Room Air Course Vital Signs Vital signs: Initial Vital Signs Temperature 97.5 F L 10/22/24 09:47 Temperature Source Oral 10/22/24 09:47 Pulse Rate 99 10/22/24 09:47 Pulse Rhythm Regular 10/22/24 09:47 Pulse Strength 3+ Normal 10/22/24 09:47 Respiratory Rate 20 10/22/24 09:47 Blood Pressure 109/80 10/22/24 09:47 Blood Pressure Mean 89 10/22/24 09:47 Blood Pressure Position Sitting 10/22/24 09:47 Pulse Oximetry 97 10/22/24 09:47 Oxygen Delivery Method Room Air 10/22/24 09:47 Vital Signs Temperature 97.5 F L 10/22/24 09:47 Pulse Rate 99 10/22/24 09:47 Respiratory Rate 20 10/22/24 09:47 Blood Pressure 109/80 10/22/24 09:47 Pulse Oximetry 97 10/22/24 09:47 Oxygen Delivery Method Room Air 10/22/24 09:47 Temperature 97.5 F L 10/22/24 09:47 Pulse Rate 91 10/22/24 12:01 Respiratory Rate 18 10/22/24 12:01 Blood Pressure 116/74 10/22/24 12:01 Pulse Oximetry 97 10/22/24 09:47 Oxygen Delivery Method Room Air 10/22/24 09:47 Medications Administered Medications: Discontinued Medications Generic Name Dose Route Start Last Admin Trade Name Freq PRN Reason Stop Dose Admin Sodium Chloride 1,000 mls @ 6,000 mls/hr 10/22/24 10:15 10/22/24 11:34 0.9 % Sodium Chloride 1000 Ml IV 10/22/24 10:24 Infused .Q10M LUIS Infusion Loperamide HCl 4 mg 10/22/24 10:10 10/22/24 10:34 Loperamide Hcl 2 Mg Capsule PO 4 mg ONCE PRN Administration Medical Decision Making MDM Narrative Medical decision making narrative: [age] year white female with diarrhea illness with frequent stools over the last 40 hours. Patient presents like a viral enteritis type picture. It has only been 40 hours. I think fluid hydration, Imodium. Lab studies. Would be appropriate. Disposition pending findings. I do not think culture the stool at this point be appropriate given she has had no recent travel. She also has had no recent antibiotic use. Her hip surgery was 7 weeks ago. Her hip wound looks clear and intact and well healed. Addendum 11 30 P a.m. patient feels markedly better after fluids and Imodium. Her labs are reassuring other than her CRP is elevated at 13 consistent with her acute illness. Her abdomen is benign I do not think she needs imaging at this time. Also for diarrhea continues she will need stool samples and C diff. she feels comfortable going home at this time I would recommend yogurt orally and then just water today not heavy meals. She was comfortable this and will recheck as needed. If she worsens she can always return if she is doing better she can advance her diet as tolerated. Lab Data Labs: Lab Results 10/22/24 Range/Units 10:42 WBC 10.44 (4.50-11.00) K/uL RBC 4.61 (4.00-5.20) m/uL Hgb 13.3 (12.0-16.0) gm/dL Hct 42.2 (33.0-51.0) % MCV 92 (80-100) fL MCH 29 (26-34) pg MCHC 32 (32-36) gm/dL RDW Coeff of Marky 14.3 (11.5-15.5) % Plt Count 278 (140-440) K/uL Neut % (Auto) 70.6 (42.0-72.0) % Lymph % (Auto) 17.7 L (20-44) % [place] % (Auto) 9.9 (0.0-11.0) % Eos % (Auto) 0.9 (0.0-7.0) % Baso % (Auto) 0.4 (0.0-3.0) % Neut # (Auto) 7.38 H (1.7-7.0) K/uL Lymph # (Auto) 1.80 (0.90-2.90) K/uL [place] # (Auto) 1.00 H (0.00-0.90) K/UL Eos # (Auto) 0.09 (0.00-0.50) K/uL Baso # (Auto) 0.04 (0.00-0.30) K/uL Abs Immat Gran (auto) 0.05 (0.00-0.30) K/uL Imm/Tot Granulo (auto) 0.5 % Sodium 138 (135-149) mmol/L Potassium 3.8 (3.6-5.1) mmol/L Chloride 106 (96-114) mmol/L Carbon Dioxide 25 (20-32) mmol/L Anion Gap 7 (7-15) mEq/L BUN 8 (7-30) mg/dL Creatinine 0.7 (0.5-1.5) mg/dL Estimated Creat Clear 84.15 Estimated GFR 100 ml/min Glucose 94 (60-115) mg/dL Calcium 9.1 (8.4-10.6) mg/dL C-Reactive Protein 13.6 H (0.5-1.0) mg/dL Amylase 39 (18-89) U/L Discharge Plan Discharge Clinical Impression: Diarrhea, Acute dehydration Patient Disposition: Home w/ Parent or Adult Condition: Improved Additional Instructions: Fluids, water, yogurt today. May use Imodium as needed. Recheck with regular doctor as needed, if worsens or changes over the next couple of days return to the ED. Activity Level: Light activity Discharge Diet: Full Liquid Diet Detail: Advance diet as tolerated starting tomorrow Prescriptions: No Action aspirin [Aspirin Childrens] 81 mg tablet,chewable 81 mg PO BID 30 Days Qty: 60 0RF acetaminophen 500 mg capsule 500 - 1,000 mg PO Q6H MDD 4000mg per day PRN (Reason: pain) Qty: 100 0RF escitalopram oxalate 10 mg tablet 10 mg PO DAILY levothyroxine 50 mcg tablet 50 mcg PO QAM oxycodone 5 mg tablet PO Follow Up/Referrals: Diya Villavicencio DO [Primary Care Provider, Family Practice] Stand Alone Forms: [employer] Info Instructions
[2024-10-22] MEDS: LOPERAMIDE HCL 2 MG CAPSULE 4 MG PO (10:34)
[2024-10-22 10:44] LABS: Hematocrit 42.2 % (33.0-51.0); Hemoglobin* 13.3 gm/dL (12.0-16.0); Immature Granulocytes Abs Auto 0.05 K/uL (0.00-0.30); Immature Granulocytes Pct Auto 0.5 %; Mean Corpuscular HGB Conc 32 gm/dL (32-36); Mean Corpuscular Hemoglobin 29 pg (26-34); Mean Corpuscular Volume 92 fL (80-100); RDW Coefficient of Variation % 14.3 % (11.5-15.5); Red Blood Count 4.61 m/uL (4.00-5.20); White Blood Count* 10.44 K/uL (4.50-11.00)
[2024-10-22 10:59] LABS: Chloride* 106 mmol/L (96-114); Potassium* 3.8 mmol/L (3.6-5.1); Sodium* 138 mmol/L (135-149)
[2024-10-22 11:02] LABS: Blood Urea Nitrogen* 8 mg/dL (7-30); Creatinine* 0.7 mg/dL (0.5-1.5); Est. Creatinine Clearance* 84.15; Estimated Glomerular Filt Rate 100 ml/min
[2024-10-22 11:03] LABS: Anion Gap 7 mEq/L (7-15); Calcium* 9.1 mg/dL (8.4-10.6); Carbon Dioxide* 25 mmol/L (20-32); Glucose* 94 mg/dL (60-115)
[2024-10-22 11:17] LABS: Lymphocytes Absolute Auto 1.80 K/uL (0.90-2.90); Slide Review Reflex No
[2024-10-22 12:01] VITALS: BP 116/74; PULSE 91; RESP 18
== END 2024-10-22 12:01 | disposition home or self-care (01) ==
PROVIDERS: Emergency Provider Family Medicine; PCP Family Medicine
DX: E86.0 Dehydration (principal); R19.7 Diarrhea, unspecified
CPT/HCPCS: 36415; 80048; 82150; 85025; 86140; 99283; 99284; A9270; J7030